=== PATIENT | male | born 1985 ===

== ENCOUNTER 2021-05-01 08:00 | Outpatient (CLI) | payer SELFPAY | END 2021-05-01 23:59 | disposition home or self-care (01) | LOC: LAB 08:00 | PROVIDERS: ATTEND Family Medicine | DX: R05.8 Other specified cough (principal); Z20.822 Contact with and (suspected) exposure to COVID-19 ==

== ENCOUNTER 2021-05-01 16:51 | Outpatient (CLI) | payer SELFPAY ==
--- NOTE | 2021-05-03 02:20 | XRAY Report ---
PROCEDURE: Chest 2 View X-Ray INDICATIONS: DRY COUGH TECHNIQUE: 2 view(s) of the chest. Images became available for interpretation on 05/02/2021. COMPARISON: None. FINDINGS: Surgical changes and devices: None. Lungs and pleura: There is appearance of increased opacities along the lateral aspect of the right lo wer lobe. Mediastinum: Mediastinal contours are normal. Heart size is normal. Bones and chest wall: No suspicious bony abnormalities. Soft tissues appear unremarkable. IMPRESSION: Appearance of lateral right lower lobe opacities, which could represent airspace disease . It is noted that the current overlying overlapping osseous structures and could be artifactual. Gina rt interval imaging follow-up is recommended, as developing pneumonia cannot be excluded. Reviewed by: Patricia Burrows MD on 05/03/2021 12:28 AM PDT Approved by: Patricia Burrows MD on 05/03/2021 12:28 AM PDT Station ID: [id number]
== END 2021-05-01 23:59 ==
LOC: DI.N 16:51
PROVIDERS: ATTEND Family Medicine
DX: R05.8 Other specified cough (principal)